=== PATIENT | female | born 1975 | race Caucasian/White ===

== ENCOUNTER 2019-01-27 22:18 | Emergency (ER) | payer OTHER ==
[~2019-01-27] VITALS: Ht 170.2 cm; Wt 72.6 kg
[~2019-01-27 22:18] MED LIST: FLEXERIL PO; KEFLEX250 MG PO; LAMICTAL XR200 MG PO; LEVOTHYROXINE 0.1 MG PO; MIRALAX17 GM PO; NORCO 10-325 T1 EACH PO; PAXIL10 MG; PERCOCET 10-321 EACH PO; PRILOSEC OTC20 MG; PROTONIX40 M1; RANITIDINE 150150 MG PO; SENOKOT-S1 TA1 PO; SYNTHROID175 MCG PO; VICODIN 5-5001 EACH PO; VYVANSE70 MG PO
[2019-01-27 23:30] LABS: URINE BILIRUBIN NEGATIVE (Negative); URINE BLOOD 1+ (Negative); URINE CLARITY SL CLOUDY; URINE COLOR YELLOW; URINE GLUCOSE-RANDOM* NEGATIVE (Negative); URINE KETONES TRACE (Negative); URINE LEUKOCYTES-REFLEX NEGATIVE (Negative); URINE NITRITE-REFLEX NEGATIVE (Negative); URINE PROTEIN (DIPSTICK) NEGATIVE (Negative); URINE SPECIFIC GRAVITY >= 1.030 (1.005-1.035); URINE UROBILINOGEN 0.2 E.U./dl (0.2-1.0)
[2019-01-27 23:43] LABS: AMP/METHAMP POSITIVE (Negative); BARBITURATES Negative (Negative); BENZODIAZEPINES Negative (Negative); COCAINE Negative (Negative); METHADONE Negative (Negative); OPIATES POSITIVE (Negative); PCP Negative (Negative)
[2019-01-27 23:49] LABS: BACTERIA-REFLEX 1-9 Few /HPF (None Seen); CASTS None Seen /LPF (None Seen); CRYSTALS None Seen /LPF (None Seen); MUCUS 4-6 Moderate strn/LPF (None Seen); SQUAMOUS 4-10 Moderate /LPF (0-3); URINE RBC 3-10 Few /HPF (0-2); URINE WBC-REFLEX 0-5 Rare /HPF (0-5)
[2019-01-28] MEDS ORDERED: TRAMADOL 50 MG50 MG PO (00:45)
[2019-01-28] MEDS ORDERED: AUGMENTIN 875-1 EACH PO (00:45)
[2019-01-28 00:49] LABS: CREATININE 0.9 mg/dL (0.6-1.0)
[2019-01-28 00:55] LABS: ALBUMIN 3.6 g/dL (3.4-5.0); TOTAL BILIRUBIN 0.6 mg/dL (<0.1-1.0); TOTAL PROTEIN 7.5 g/dL (6.4-8.2)
[2019-01-28 01:27] LABS: ABSOLUTE NEUTROPHILS 5.5 thou/uL (1.4-8.2); BASOPHILS 0.5 % (0.0-2.0); EOSINOPHILS 2.1 % (0.0-3.0); HEMATOCRIT 37.4 % (37.0-47.0); HEMOGLOBIN 12.3 gm/dL (12.0-15.0); LYMPHOCYTES 19.9 % (24.0-44.0); MCH 31.2 pg (26.0-34.0); MCV 94.8 fL (80.0-100.0); MONOCYTES 7.3 % (1.0-8.0); PLATELET COUNT 217 thou/uL (150-400); POLYS 70.2 % (36.0-66.0); RBC 3.95 mil/uL (4.20-5.00); RDW 15.3 % (10.5-14.5); WBC 7.9 thou/uL (4.0-11.0)
[2019-01-28 03:27] VITALS: BP 114/62
== END 2019-01-28 03:28 | disposition home or self-care (01) ==
LOC: ER 22:18
PROVIDERS: Emergency Medicine
DX: L03.115 Cellulitis of right lower limb (principal); F90.9 Attention-deficit hyperactivity disorder, unspecified type; F17.210 Nicotine dependence, cigarettes, uncomplicated; Z90.710 Acquired absence of both cervix and uterus; Z96.653 Presence of artificial knee joint, bilateral; Z88.1 Allergy status to other antibiotic agents; Z88.2 Allergy status to sulfonamides; Z88.7 Allergy status to serum and vaccine